=== PATIENT | male | born 1940 | race Caucasian/White ===

== ENCOUNTER 2022-11-21 15:44 | Emergency (ER) | payer MEDICARE ==
[~2022-11-21] VITALS: Ht 167.6 cm; Wt 60.0 kg
[2022-11-21] MEDS ORDERED: ALPRAZOLAM0.25 MG PO (17:17)
[2022-11-21 17:52] VITALS: BP 90/55
== END 2022-11-21 19:35 ==
LOC: ED 15:44
DX: R55 Syncope and collapse (principal); R62.7 Adult failure to thrive; I69.354 Hemiplegia and hemiparesis following cerebral infarction affecting left non-dominant side; I10 Essential (primary) hypertension
CPT/HCPCS: J2060